=== PATIENT | female | born 1985 | race African-American/Black ===

== ENCOUNTER 2019-12-20 12:57 | Emergency (ER) | payer SELFPAY ==
[2019-12-20 13:11] VITALS: BP 140/87; PULSE 90; RESP 20; TEMP 36.6; O2SAT 97
--- NOTE | 2019-12-20 13:19 | ED.URI ---
HPI - URI/Sore Throat General Chief Complaint: Upper Respiratory Infection Stated Complaint: Ear/Nose/Throat Time Seen by Provider: 12/20/19 13:38 Source: patient and RN notes reviewed Mode of arrival: ambulatory Limitations: no limitations History of Present Illness HPI Narrative: 34-year-old female presents with concern for sore throat, headache, nausea, vomiting started yesterday. Reports taking Tylenol. MD elicited complaint: sore throat Related Data Allergies Allergy/AdvReac Type Severity Reaction Status Date / Time No Known Allergies Allergy Unknown Verified 12/20/19 13:37 Review of Systems Review of Systems: Narrative: CONSTITUTIONAL: Reports malaise, chills, sweats, fever. EYES: Denies visual changes, redness, or discharge. ENT: Denies rhinorrhea, congestion, sinus pain, otalgia. Reports sore throat. CARDIOVASCULAR: Denies chest pain, palpitations, or edema. RESPIRATORY: Reports occasional cough. Denies dyspnea. GASTROINTESTINAL: Denies abdominal pain, nausea, vomiting, diarrhea SKIN: Denies rash or itching. MUSCULOSKELETAL: Reports myalgia. NEUROLOGIC: Denies headache. All systems reviewed & are unremarkable except as noted in HPI and below PMFSH Comments At time of signature, agree with nursing past medical, surgical, social and family history. There is no relevant family history pertinent to the presenting complaint Exam Narrative: Exam Narrative: GENERAL: Well-appearing, well-nourished, and in no acute distress. HEAD: Normocephalic EYES: PERRLA, conjunctivae clear ENT: Nares clear, turbinates pink, no discharge. Mucous membranes moist. TM pearly [place] with sharp light reflex bilaterally; no tragal tenderness. Oropharynx erythematous without lesions. Tonsils enlarged and without exudate, no drooling, no hoarseness, no trismus. NECK: Supple. No lymphadenopathy CHEST: Clear to auscultation, breath sounds equal. No wheezing, rhonchi, rales, or stridor. No respiratory distress, speaks in full sentences. HEART: Regular rate and rhythm. No murmur heard. Normal peripheral pulses. SKIN: Warm, dry, no rash. NEURO: Alert and oriented x3. PSYCH: Normal mood and affect Course Course Emergency Course: Patient is aware of diagnosis, understands and agrees to treatment plan. Anticipatory guidance given. Patient agrees to follow-up as directed and is aware of reasons to seek care at the emergency department. Portions of this record may have been created with voice recognition software Vital Signs Vital signs: Vital Signs Temperature 97.9 F 12/20/19 13:11 Pulse Rate 90 12/20/19 13:11 Respiratory Rate 20 12/20/19 13:11 Blood Pressure 140/87 12/20/19 13:11 Pulse Oximetry 97 12/20/19 13:11 Temperature 97.9 F 12/20/19 13:11 Pulse Rate 90 12/20/19 13:11 Respiratory Rate 20 12/20/19 13:11 Blood Pressure 140/87 12/20/19 13:11 Pulse Oximetry 97 12/20/19 13:11 Reviewed. MDM - URI/Sore Throat MDM Narrative Medical decision making narrative: Differential diagnosis considered: Strep pharyngitis, allergic rhinitis, upper respiratory tract infection, sinusitis, rhinosinusitis, nasopharyngitis. viral pharyngitis, otitis media, otitis externa, pneumonia, bronchitis, viral cough syndrome, viral syndrome, and influenza. Exam findings show no acute concerns or changes; patient is non-toxic appearing and is in no distress. Patient is appropriate for outpatient treatment and follow-up. Lab Data Attestation: I reviewed the patient's lab results. Labs: Strep Screen Positive Group A Strep *(Reference Range: Negative)* Critical Care Time Critical Care Time Critical Care Time: No Discharge Plan Discharge Clinical Impression: Acute streptococcal pharyngitis Patient Disposition: Home, Self-Care Condition: Stable Instructions: Antibiotic Form, Strep Throat (ED) Additional Instructions: -Take the medication as prescribed. Throw away the toothbrush after 24hours of
== END 2019-12-20 14:01 | disposition home or self-care (01) ==
PROVIDERS: Emergency Provider Nurse Practitioner
DX: J02.0 Streptococcal pharyngitis (principal)
CPT/HCPCS: 87880; 99213; G0463

== ENCOUNTER 2020-07-05 12:53 | Emergency (ER) | payer OTHER, SELFPAY ==
--- NOTE | ~2020-07-05 | XR_ITS ---
EXAMINATION: XR chest 2V 07/05/2020 13:23 INDICATION: Cough and congestion. Shortness of breath. Wheezing. PROCEDURE: 2 view chest COMPARISON: No prior studies for comparison. FINDINGS: The lungs are clear. The cardiomediastinal silhouette is within normal limits. There are no pleural effusions. There is no pneumothorax suspected. IMPRESSION: 1: NO ACUTE CARDIOPULMONARY DISEASE. Reviewed, dictated and finalized at location A.
[2020-07-05 13:08] VITALS: BP 139/93; PULSE 86; RESP 16; TEMP 37.3; O2SAT 100
--- NOTE | 2020-07-05 13:44 | ED.GENADULT ---
HPI - General Adult General Chief complaint: Upper Respiratory Infection Stated complaint: cough/chest congestion Time Seen by Provider: 07/05/20 13:44 Source: patient and RN notes reviewed Mode of arrival: ambulatory Limitations: no limitations History of Present Illness HPI narrative: 35-year-old -[place] female presents with complains of PND, dry cough, chest congestion, and intermittent wheezing for the past 7 days. Mucinex and Vicks nasal drops without relief. Symptoms increased over the pass 72 hours with cough, head congestion, irritation to throat, and intermittent wheezing. Constant dry cough. Rhinorrhea and nasal congestion. Sore throat. No high fevers, drooling, neck or throat swelling. No chest pain or shortness of breath. No exacerbation factors. Denies nausea, vomiting, and abdominal pain. Tolerating liquids well. LMP 07/01/20. The patient reports she have not been diagnosed with COVID-19. Tested NEGATIVE for COVID-19 on 07/03/20, received results today per Ladonna. The patient reports she do not have fever, chills, weakness, fatigue, or myalgia. The patient reports she do not have a new or worsening shortness of breath. Denies chest pain. The patient reports she do not have any loss of taste or diarrhea. Denies recent traveling. Denies concerns for COVID-19 or exposures been home with limited outdoor exposure except for essential household needs, work, and return home. At this time, patient is not suspected of having COVID-19. Some parts of this dictation were generated by voice recognition software and may contain typographical and/or grammatical inaccuracies. Related Data Allergies Allergy/AdvReac Type Severity Reaction Status Date / Time No Known Allergies Allergy Unknown Verified 07/05/20 13:19 Review of Systems Review of Systems: Narrative: CONSTITUTIONAL: Denies fever, chills, sweats. EYES: Denies visual changes, redness, discharge. ENT: Complains of rhinorrhea, congestion, sore throat. Denies otalgia. CARDIOVASCULAR: Denies chest pain, palpitations, edema. RESPIRATORY: Denies dyspnea, . Complains of wheezing, dry cough. GASTROINTESTINAL: Denies abdominal pain, nausea, vomiting, diarrhea. GENITOURINARY: Denies dysuria, hematuria, abnormal discharge. SKIN: Denies rash or itching. MUSCULOSKELETAL: Denies acute back pain, joint pain, or myalgia. NEUROLOGIC: Denies numbness or focal weakness. PSYCHIATRIC: Denies anxiety or depression. All systems reviewed & are unremarkable except as noted in HPI and below. [facility] Past Medical History Medical History (Updated 07/06/20 @ 00:00 by Marti Chen) No significant past medical history Surgical History Surgical History (Updated 07/05/20 @ 14:03 by ISAIAH Vo) No significant past surgical history Family History Family History (Updated 07/05/20 @ 14:03 by ISAIAH Vo) Father Hypertension Mother Depression Cancer of kidney Social History Social History (Updated 07/05/20 @ 14:04 by ISAIAH Vo) Smoking status: Former smoker Tobacco type: cigarettes Second hand tobacco smoke exposure: No Smoking end date: 10/23/17 Alcohol intake: current Substance use: never Living arrangements: with family Occupation/Education: occupation Gender identity (if verbalized by the patient): Female Comments At time of signature, agree with nurse past medical, surgical, social, and family history. There is no relevant family history pertinent to the presenting complaint. Exam Narrative: Exam Narrative: GENERAL: This is a well-nourished, well-developed patient, in no apparent distress. Talks in full sentences and ambulates with steady gait without dyspnea. HEAD: normocephalic, atraumatic. EYES: PERRL. Sclera clear/white. Vision is grossly intact. EARS: External ears normal, auditory canals clear and without drainage, TMs normal without perforation. Hearing grossly intact. NOSE: External nose no
== END 2020-07-05 14:00 | disposition home or self-care (01) ==
PROVIDERS: Emergency Provider Nurse Practitioner Family
DX: J40 Bronchitis, not specified as acute or chronic (principal)
CPT/HCPCS: 71046; 87081; 87804; 87880; 99213; G0463

== ENCOUNTER 2021-02-14 11:28 | Emergency (ER) | payer OTHER, SELFPAY ==
[2021-02-14 11:33] VITALS: BP 125/90; PULSE 79; RESP 18; TEMP 36.4; O2SAT 100
--- NOTE | 2021-02-14 11:50 | ED.DENTAL ---
HPI - Dental/Oral General Chief complaint: Dental/Oral Stated complaint: facial swelling Time Seen by Provider: 02/14/21 11:50 Source: patient and RN notes reviewed Mode of arrival: ambulatory Limitations: no limitations History of Present Illness HPI Narrative: 35-year-old female presents concern for left lower jaw swelling, dental pain for 3 days. Reports prior to the pain starting she had a teeth cleaning. She denies any problems with her teeth, broken teeth, missing teeth in the past. Reports she has been taking Tylenol with little relief. Denies drooling, neck swelling, headache, fever. MD Complaint: tooth pain Related Data Allergies Allergy/AdvReac Type Severity Reaction Status Date / Time No Known Allergies Allergy Unknown Verified 02/14/21 11:42 Review of Systems Review of Systems: Narrative: CONSTITUTIONAL: Denies malaise, chills, sweats, or fever. EYES: Denies visual changes, redness, or discharge. ENT: Denies rhinorrhea, congestion, sinus pain, otalgia or sore throat. Reports left lower dental pain and jaw swelling CARDIOVASCULAR: Denies chest pain, palpitations, or edema. RESPIRATORY: Denies cough or dyspnea. SKIN: Denies rash or itching. MUSCULOSKELETAL: Denies myalgia. NEUROLOGIC: Denies numbness, weakness, or headache. All systems reviewed & are unremarkable except as noted in HPI and below PMFSH Past Medical History Medical History (Updated 02/14/21 @ 11:55 by Rae Renee NP) No significant past medical history Surgical History Surgical History (Updated 07/05/20 @ 14:03 by ISAIAH Vo) No significant past surgical history Family History Family History (Updated 07/05/20 @ 14:03 by ISAIAH Vo) Father Hypertension Mother Depression Cancer of kidney Social History Social History (Updated 07/05/20 @ 14:04 by ISAIAH Vo) Smoking status: Former smoker Tobacco type: cigarettes Second hand tobacco smoke exposure: No Smoking end date: 10/23/17 Alcohol intake: current Substance use: never Gender identity (if verbalized by the patient): Female Comments At time of signature, agree with nursing past medical, surgical, social and family history. There is no relevant family history pertinent to the presenting complaint Exam Narrative: Exam Narrative: GENERAL: Well-appearing, well-nourished, and in no acute distress. HEAD: Normocephalic, atraumatic. EYES: PERRLA, conjunctivae clear ENT: Nares clear. Mucous membranes moist. Oropharynx without edema, erythema or lesions. Tonsils not enlarged and without exudate. Airway patent, no drooling. Left lower gumline erythematous, no missing teeth, broken teeth noted. NECK: Supple. No lymphadenopathy. No jugular venous distension, thyromegaly, or carotid bruits. Carotids were easily palpable bilaterally. Left lower facial edema noted, no neck edema. CHEST: No respiratory distress. Clear to auscultation. No bony deformities, no asymmetry. Speaks in full sentences. HEART: Regular rate and rhythm. No murmur heard. SKIN: Warm, dry, no rash. NEURO: Alert and oriented x3. PSYCH: Normal mood and affect Course Course Emergency Course: Patient is aware of diagnosis, understands and agrees to treatment plan. Anticipatory guidance given. Patient agrees to follow-up as directed and is aware of reasons to seek care at the emergency department. Portions of this record may have been created with voice recognition software Vital Signs Vital signs: Vital Signs Temperature 97.6 F 02/14/21 11:33 Pulse Rate 79 02/14/21 11:33 Respiratory Rate 18 02/14/21 11:33 Blood Pressure 125/90 02/14/21 11:33 Pulse Oximetry 100 02/14/21 11:33 Temperature 97.6 F 02/14/21 11:33 Pulse Rate 79 02/14/21 11:33 Respiratory Rate 18 02/14/21 11:33 Blood Pressure 125/90 02/14/21 11:33 Pulse Oximetry 100 02/14/21 11:33 Reviewed. MDM - Dental/Oral MDM Narrative Medical decision making narrat
== END 2021-02-14 12:00 | disposition home or self-care (01) ==
PROVIDERS: Emergency Provider Nurse Practitioner; PCP Nurse Practitioner Family
DX: K04.7 Periapical abscess without sinus (principal); F17.210 Nicotine dependence, cigarettes, uncomplicated
CPT/HCPCS: 99213; G0463

== ENCOUNTER 2021-07-22 14:12 | Outpatient (CLI) | payer OTHER, SELFPAY ==
--- NOTE | ~2021-07-22 | US_ITS ---
EXAMINATION: US pelvic complete w TV DATE: 07/22/2021 15:17 INDICATION: Pelvic and perineal pain TECHNIQUE: Multiple transabdominal and endovaginal sonographic images of the pelvis were obtained. COMPARISON: None. FINDINGS: The uterus measures 6.9 x 3.7 x 4.8 cm. An IUD is noted in expected position. The endometri al complex measures 5 mm. The right ovary measures 3.5 x 2.0 x 2.6 cm. The left ovary measures 4.2 x 2.7 x 1.9 cm. There is normal vascular flow in the ovaries. There is no free fluid in the pelvis. IMPRESSION: 1. No sonographic correlate for the patient's symptoms. Reviewed, dictated and finalized at location A.
== END 2021-07-22 14:13 | disposition home or self-care (01) ==
LOC: ANHIMG 14:16
PROVIDERS: PCP Nurse Practitioner Family; Visit Provider Obstetrics & Gynecology
DX: R10.2 Pelvic and perineal pain (principal)
CPT/HCPCS: 76830; 76856

== ENCOUNTER 2021-09-28 12:21 | Emergency (ER) | payer OTHER, SELFPAY ==
[2021-09-28 12:34] VITALS: BP 132/92; PULSE 87; RESP 18; TEMP 37.1; O2SAT 100
--- NOTE | 2021-09-28 14:03 | ED.URI ---
HPI - URI/Sore Throat General Chief Complaint: Upper Respiratory Infection Stated Complaint: sinus congest and headache cough History of Present Illness HPI Narrative: THIS IS A 36 YEAR OLD FEMALE THAT PRESENT TO URGENT CARE WITH COUGH, SORE THROAT AND NOT FEELING. PATIENT STATES THAT SHE HAD SOME TYLENOL AND IBUPROFEN FOR PAIN Related Data Home Medications Medication Instructions Recorded Confirmed levonorgestrel [Mirena] 1 insert INTRAUTERINE ONCE 09/28/21 09/28/21 Allergies Allergy/AdvReac Type Severity Reaction Status Date / Time No Known Allergies Allergy Unknown Verified 09/28/21 13:55 Review of Systems Review of Systems: COUGH, SORE THROAT AND BODY ACHES All systems reviewed & are unremarkable except as noted in HPI and below PMFSH Past Medical History Medical History (Updated 09/28/21 @ 14:05 by Mimi Pizano NP) No significant past medical history Surgical History Surgical History (Updated 07/05/20 @ 14:03 by ISAIAH Vo) No significant past surgical history Family History Family History (Updated 07/05/20 @ 14:03 by ISAIAH Vo) Father Hypertension Mother Depression Cancer of kidney Social History Social History (Updated 07/05/20 @ 14:04 by ISAIAH Vo) Smoking status: Former smoker Tobacco type: cigarettes Second hand tobacco smoke exposure: No Smoking end date: 10/23/17 Alcohol intake: current Substance use: never Gender identity (if verbalized by the patient): Female Exam Narrative: GENERAL:Well-appearing, well-nourished, and in no acute distress. HEAD:Normocephalic EYES: PERRLA ENT: Nares clear, Mucous membranes moist. PHARYGEAL ERYTHEMA CHEST: Clear to DIMINSHED IN LOWER LOBES auscultation. No respiratory distress. HEART: Regular rate and rhythm. Normal peripheral pulses. ABDOMEN: Soft, nontender, normal active bowel sounds. EXTREMITIES: Normal range of motion. SKIN: Warm, dry, no rash. NEURO: No focal deficits. Alert and oriented x3. 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 STREP NEGATIVE iNFULENZA NEGATIVE cOVID NEGATIVE Vital Signs Vital signs: Vital Signs Temperature 98.7 F 09/28/21 12:34 Pulse Rate 87 09/28/21 12:34 Respiratory Rate 18 09/28/21 12:34 Blood Pressure 132/92 H 09/28/21 12:34 Pulse Oximetry 100 09/28/21 12:34 Temperature 98.7 F 09/28/21 12:34 Pulse Rate 87 09/28/21 12:34 Respiratory Rate 18 09/28/21 12:34 Blood Pressure 132/92 H 09/28/21 12:34 Pulse Oximetry 100 09/28/21 12:34 MDM - URI/Sore Throat Differential Diagnosis Differential diagnosis: Likely upper respiratory infection, croup, otitis media, sinusitis, viral infection, bronchitis, influenza and pharyngitis Lab Data Labs: Lab Results 09/28/21 Range/Units 13:20 POC SARS CoV-2 Ag Negative (Negative) Influenza A Screen Negative Reference Range: Negative Influenza B Screen Negative Reference Range: Negative Discharge Plan Discharge Clinical Impression: Viral infection Upper respiratory infection Qualifiers: URI type: unspecified URI Qualified Code(s): J06.9 - Acute upper respiratory infection, unspecified Patient Disposition: Home, Self-Care Condition: Stable Instructions: Antibiotic Form, Viral Syndrome (ED) Additional Instructions: Viral illness may last between 7-12days; antibiotic is NOT recommended at this time. Recommend antihistamine such as Benadryl at night time and Claritin/Zyrtec/Hermelinda during the day Also, recommend symptomatic treatment includes: rest, fluids, and increase humidity of the air at home. Recommend Acetaminophen or nonsteroidal anti-inflammatory agents (NSAIDs) as directed in the bottle to reduce fever and/pain/headache. Avoid smoking/second-hand smoke. Limit visits to areas with large crowds.
== END 2021-09-28 14:10 | disposition home or self-care (01) ==
PROVIDERS: Emergency Provider Nurse Practitioner Family; PCP Nurse Practitioner Family
DX: B34.9 Viral infection, unspecified (principal); J06.9 Acute upper respiratory infection, unspecified; Z20.822 Contact with and (suspected) exposure to COVID-19; Z87.891 Personal history of nicotine dependence
CPT/HCPCS: 87426; 87804; 99213; C9803; G0463

== ENCOUNTER 2021-10-28 16:10 | Emergency (ER) | payer OTHER, SELFPAY ==
[2021-10-28 16:23] VITALS: BP 132/94; PULSE 92; RESP 18; TEMP 37.3; O2SAT 99
--- NOTE | 2021-10-28 17:03 | ED.URI ---
HPI - URI/Sore Throat General Chief Complaint: Upper Respiratory Infection Stated Complaint: Headache/Congestion Source: patient and RN notes reviewed Mode of arrival: ambulatory History of Present Illness HPI Narrative: 36-year-old female presented for complaint of body aches, headache, right ear pain and sinus pressure for about 4 days. She denies cough, nausea, vomiting, diarrhea, or dizziness. She endorses fever at home of 101.2 about 2 days ago. She has not taken anything for symptoms. She is vaccinated for Covid. Related Data Allergies Allergy/AdvReac Type Severity Reaction Status Date / Time No Known Allergies Allergy Unknown Verified 09/28/21 13:55 Review of Systems Review of Systems: All systems reviewed & are unremarkable except as noted in HPI and below PMFSH Past Medical History Medical History No significant past medical history Surgical History Surgical History No significant past surgical history Family History Family History Father Hypertension Mother Depression Cancer of kidney Social History Social History Smoking status: Former smoker Tobacco type: cigarettes Second hand tobacco smoke exposure: No Smoking end date: 10/23/17 Alcohol intake: current Substance use: never Gender identity (if verbalized by the patient): Female Exam Narrative: GENERAL: ill-appearing, no acute distress. HEAD: Normocephalic, atraumatic. EYES: EOMI. No redness or drainage. Conjunctivae normal. ENT: Mucous membranes pink and moist. Nares clear. No rhinorrhea. TMs normal bilaterally. Throat normal. Uvula midline. NECK: Normal AROM. Supple. No lymphadenopathy. CHEST: No respiratory distress. Clear to auscultation. HEART: Regular rate and rhythm. No murmur appreciated. Normal peripheral pulses. ABDOMEN: Soft, nontender, nondistended MUSCULOSKELETAL: No bony tenderness. EXTREMITIES: Normal range of motion. No edema. SKIN: Warm, dry, no rash. Capillary refill normal. Normal skin turgor. NEURO: No focal deficits. Alert and oriented x3. Gait steady. PSYCH: Normal affect. No signs of depression or anxiety. Course Course Emergency Course: Covid test pending. Discharge with instructions on supportive care and quarantine. Level of Care: Express Care Visit Vital Signs Vital signs: Vital Signs Temperature 99.2 F 10/28/21 16:23 Pulse Rate 92 10/28/21 16:23 Respiratory Rate 18 10/28/21 16:23 Blood Pressure 132/94 H 10/28/21 16:23 Pulse Oximetry 99 10/28/21 16:23 Temperature 99.2 F 10/28/21 16:23 Pulse Rate 92 10/28/21 16:23 Respiratory Rate 18 10/28/21 16:23 Blood Pressure 132/94 H 10/28/21 16:23 Pulse Oximetry 99 10/28/21 16:23 MDM - URI/Sore Throat Differential Diagnosis Differential diagnosis: Likely upper respiratory infection, otitis media and viral infection Discharge Plan Discharge Clinical Impression: Viral infection, Encounter for laboratory testing for COVID-19 virus Patient Disposition: Home, Self-Care Condition: Stable Instructions: Antibiotic Form, COVID-19 (Coronavirus Disease 2019) (ED) Additional Instructions: You were tested for COVID-19 today. Please remain quarantined until your Covid results are back. Should your test be positive even streaming quarantine for a total of 5 days if symptoms are improved. When you return to the public please wear an N95 mask for the following 5 days. Rest. Drink plenty of fluids. Alternate Tylenol and ibuprofen every 8 hours. You can take [id number] Zyrtec daily. Follow-up/Referrals: Putnam,Clair Darby APN [Primary Care Provider] - Stand Alone Forms: Work/School Release IP Time of Disposition: 17:05
[2021-10-29 22:11] LABS: SARS-CoV-2 RNA PCR Negative
== END 2021-10-28 17:29 | disposition home or self-care (01) ==
PROVIDERS: Emergency Provider Nurse Practitioner Family; PCP Nurse Practitioner Family
DX: B34.9 Viral infection, unspecified (principal); Z20.822 Contact with and (suspected) exposure to COVID-19
CPT/HCPCS: 99213; C9803; G0463; U0003; U0005

== ENCOUNTER 2021-11-04 11:00 | Outpatient (CLI) | payer OTHER, SELFPAY ==
--- NOTE | ~2021-11-04 | XR_ITS ---
EXAMINATION: XR chest 2V EXAM DATE: 11/04/2021 11:26 INDICATION: Chronic cough. TECHNIQUE: Frontal and lateral projections of the chest obtained and reviewed. Comparison is made to prior examination from 07/05/2020. FINDINGS: The lungs are clear. There are no pleural effusions. The cardiomediastinal silhouette is within normal limits. There is no pneumothorax suspected. The bones and soft tissues are unremarkab le. IMPRESSION: No acute cardiopulmonary findings. Reviewed, dictated and finalized at location A. 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
== END 2021-11-04 11:01 | disposition home or self-care (01) ==
LOC: ANHIMG 11:05
PROVIDERS: PCP Nurse Practitioner Family; Visit Provider Nurse Practitioner Family
DX: R05.3 Chronic cough (principal)
CPT/HCPCS: 71046

== ENCOUNTER 2022-08-03 13:09 | Outpatient (CLI) | payer OTHER, SELFPAY ==
--- NOTE | ~2022-08-03 | MMUS_ITS ---
EXAMINATION: MM diagnostic mike BI w stephanie, US breast BI limited HISTORY: Follow-up breast asymmetries TECHNIQUE: Additional 3-D tomosynthesis images of the breasts were performed and synthetic 2-D images were generated. CAD analysis was submitted and interpreted. High resolution limited bilateral breast ultrasound was performed. COMPARISON: 07/22/2022 BREAST PARENCHYMAL COMPOSITION: Breast composed of scattered areas of fibroglandular density FINDINGS: MAMMOGRAPHIC FINDINGS: The focal asymmetry in the lower central right breast is less apparent with spot compression views. T here is a small 4 mm mass in the upper outer quadrant of the left breast with central lucency, most l ikely benign intramammary lymph node. ULTRASOUND: Limited right breast ultrasound: Normal heterogeneous echotexture without focal solid or cystic mass. No sonographic correlate in the area of breast asymmetry. Limited left breast ultrasound: Normal heterogeneous echotexture in the area of the mammographic abno rmality. IMPRESSION: 1. Probable benign focal asymmetry of the right breast. Probable benign intramammary lymph node in th e left breast. 2. Recommend 6 month follow-up diagnostic bilateral mammogram. BI-RADS category 3, probably benign findings. Reviewed, dictated and finalized at location A. IMPRESSION: 1. Probable benign focal asymmetry of the right breast. Probable benign intrama mmary lymph node in the left breast. 2. Recommend 6 month follow-up diagnostic bilateral mammogram. BI-RADS category 3, probably benign findings.
== END 2022-08-03 13:10 | disposition home or self-care (01) ==
DX: R92.8 Other abnormal and inconclusive findings on diagnostic imaging of breast (principal)
CPT/HCPCS: 76642; 77062; 77066; G0279

== ENCOUNTER 2023-11-30 12:32 | Outpatient (CLI) | payer OTHER, SELFPAY ==
--- NOTE | ~2023-11-30 | MM_ITS ---
EXAMINATION: MM screening mike BI w stephanie HISTORY: Screening mammogram TECHNIQUE: Craniocaudal and mediolateral oblique 3-D tomosynthesis images were obtained and synthetic 2-D images were generated. CAD analysis was submitted and interpreted. COMPARISON: 08/03/2022 diagnostic bilateral mammogram and Limited bilateral breast ultrasound examina tion 07/22/2022 bilateral screening mammogram BREAST PARENCHYMAL COMPOSITION: There are scattered areas of fibroglandular density. FINDINGS: There is no evidence of suspicious mass, calcification, or architectural distortion to sugg est malignancy in either breast. There has been no suspicious interval change. IMPRESSION: 1. No mammographic evidence of malignancy. 2. Recommend routine screening mammography in one year. BI-RADS Category 1: Negative Reviewed, dictated and finalized at location A. 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
== END 2023-11-30 12:33 | disposition home or self-care (01) ==
PROVIDERS: PCP Family Medicine; Visit Provider Family Medicine
DX: Z12.31 Encounter for screening mammogram for malignant neoplasm of breast (principal)
CPT/HCPCS: 77063; 77067